=== PATIENT | male | born 1935 | race Caucasian/White ===

== ENCOUNTER 2023-11-09 12:07 | Inpatient (IN) | payer MEDICARE, OTHER ==
[2023-11-09] MEDS: Sodium Chloride 0.9% 10 ML Syringe FLUSH PRN (12:30)
[2023-11-09 12:50] LABS: BASOPHILS PERCENT AUTO 0.1 % (0.0-1.0); HEMOGLOBIN 14.6 gm/dl (14.0-18.0); IMMATURE GRAN ABSOLUTE AUTO 0.06 K/mm3 (0.00-0.05); IMMATURE GRAN PERCENT AUTO 0.4 % (0.0-0.4); LYMPHOCYTES ABSOLUTE AUTO 0.8 K/mm3 (1.0-4.8); LYMPHOCYTES PERCENT AUTO 4.7 % (24.0-44.0); MEAN CORPUSCULAR HEMOGLOBIN 30.9 pg (28.0-32.0); MEAN CORPUSCULAR HGB CONC 32.4 g/dl (32.0-36.0); MEAN CORPUSCULAR VOLUME 95.1 fl (83.0-99.0); MEAN PLATELET VOLUME 10.5 fl (9.4-12.4); MONOCYTES ABSOLUTE AUTO 0.7 K/mm3 (0.0-0.8); MONOCYTES PERCENT AUTO 4.1 % (0.0-8.0); NEUTROPHILS ABSOLUTE AUTO 14.8 K/mm3 (1.8-7.7); NEUTROPHILS PERCENT AUTO 90.7 % (41.0-71.0); PLATELET COUNT,PLT 166 K/mm3 (150-400); RED BLOOD CELL COUNT 4.73 M/mm3 (4.52-5.90); WHITE BLOOD CELL COUNT,WBC 16.36 K/mm3 (3.9-11.3)
[2023-11-09] MEDS: Sodium Chloride 0.9% 500 ML IV STA ×2 (12:50→14:14)
[2023-11-09 13:08] LABS: A/G RATIO 1.1 (1-2); ALBUMIN 3.2 g/dl (3.4-5.0); ANION GAP 18.4 (5-15); BILIRUBIN TOTAL 0.6 mg/dL (0.2-1.0); CALCIUM 8.7 mg/dL (8.5-10.1); CREATININE 1.6 mg/dL (0.7-1.3); EST CRCL DRUG DOSING (CG) 30.41 mL/min; POTASSIUM,K 4.4 mEq/L (3.5-5.1); PROTEIN TOTAL,TP 6.2 g/dl (6.4-8.2)
[2023-11-09 13:25] LABS: CORONAVIRUS COVID-19 NAA NEGATIVE (NEGATIVE); INFLUENZA A NAA NEGATIVE (NEGATIVE); RESPIRATORY SYNCYTIAL VIR NAA NEGATIVE (NEGATIVE)
[2023-11-09 13:28] LABS: SLIDE REVIEW ABNORMAL SMEAR
[2023-11-09 13:33] LABS: LACTIC ACID 1.7 mmol/L (0.4-2.0)
[2023-11-09] MEDS: cefTRIAXone 2 GM in Sodium Chloride 0.9% 100 ML IV ONE (14:15)
[2023-11-09] MEDS: Magnesium Sulfate/Water 4 GM in Premix Bag 1 BAG IV ONE (15:30)
[2023-11-09] MEDS ORDERED: Azithromycin 500 MG in Sodium Chloride 0.9% 250 ML IV SCH (15:45)
[2023-11-09 16:08] LABS: APPEARANCE,URINE CLEAR (Clear); BILIRUBIN,URINE NEGATIVE (Negative); COLOR,URINE YELLOW (Yellow); GLUCOSE,URINE 2+ (Negative); KETONES,URINE NEGATIVE (Negative); LEUKOCYTE ESTERASE,URINE NEGATIVE (Negative); NITRITE,URINE NEGATIVE (Negative); OCCULT BLOOD,URINE NEGATIVE (Negative); PH,URINE 5.5 (5.0-8.0); PROTEIN,URINE NEGATIVE (Negative); UROBILINOGEN,URINE 0.2 (0.2-1.0)
[2023-11-09] MEDS: Cefepime 2 GM in Sodium Chloride 0.9% 50 ML IV SCH ×2 (16:48→18:43)
[2023-11-09] MEDS: Azithromycin 500 MG in Sodium Chloride 0.9% 250 ML IV SCH (17:19)
[2023-11-09] MEDS: Sodium Chloride 0.9% 1,000 ML IV STA (18:43)
[2023-11-09] MEDS ORDERED: 50% Dextrose in Water 50 ML Syringe IVPUSH PRN (19:41)
[2023-11-09] MEDS: Doxycycline 100 MG in Sodium Chloride 0.9% 100 ML IV SCH (20:58)
[2023-11-09] MEDS: Carvedilol 6.25 MG Tab PO SCH (20:59)
[2023-11-09] MEDS: Sodium Chloride 0.9% 1,000 ML IV SCH (21:45)
[2023-11-10] MEDS: Acetaminophen 325 MG Tab PO PRN (04:37)
[2023-11-10] MEDS: Pantoprazole 40 MG Tab.CR PO SCH (04:40)
[2023-11-10 04:51] LABS: BASOPHILS PERCENT AUTO 0.1 % (0.0-1.0); EOSINOPHILS PERCENT AUTO 0.4 % (0.0-6.0); HEMATOCRIT 38.5 % (42.0-52.0); IMMATURE GRAN ABSOLUTE AUTO 0.06 K/mm3 (0.00-0.05); IMMATURE GRAN PERCENT AUTO 0.5 % (0.0-0.4); LYMPHOCYTES ABSOLUTE AUTO 1.2 K/mm3 (1.0-4.8); MEAN CORPUSCULAR HEMOGLOBIN 30.7 pg (28.0-32.0); MEAN CORPUSCULAR HGB CONC 32.5 g/dl (32.0-36.0); MEAN CORPUSCULAR VOLUME 94.6 fl (83.0-99.0); MEAN PLATELET VOLUME 10.9 fl (9.4-12.4); MONOCYTES ABSOLUTE AUTO 0.7 K/mm3 (0.0-0.8); MONOCYTES PERCENT AUTO 5.9 % (0.0-8.0); NEUTROPHILS PERCENT AUTO 82.1 % (41.0-71.0); PLATELET COUNT,PLT 152 K/mm3 (150-400); RED BLOOD CELL COUNT 4.07 M/mm3 (4.52-5.90); WHITE BLOOD CELL COUNT,WBC 10.97 K/mm3 (3.9-11.3)
[2023-11-10 04:53] LABS: HEMOGLOBIN 12.5 gm/dl (14.0-18.0)
[2023-11-10 05:18] LABS: A/G RATIO 0.9 (1-2); ALBUMIN 2.5 g/dl (3.4-5.0); ANION GAP 12.9 (5-15); BILIRUBIN TOTAL 0.5 mg/dL (0.2-1.0); BUN/CREATININE RATIO 16.2 (14-18); C-REACTIVE PROTEIN 10.55 mg/dL (<0.30); CREATININE 1.3 mg/dL (0.7-1.3); EST CRCL DRUG DOSING (CG) 37.43 mL/min; MAGNESIUM 2.1 mg/dL (1.8-2.4); POTASSIUM,K 3.9 mEq/L (3.5-5.1); PROTEIN TOTAL,TP 5.2 g/dl (6.4-8.2)
[2023-11-10] MEDS: Enoxaparin 40 MG/0.4 ML Syringe SUBCUT SCH (08:05)
[2023-11-10] MEDS: Aspirin 81 MG Tab.EC PO SCH (08:05)
[2023-11-10] MEDS: Insulin Lispro 100 Unit/ML 3 ML KwikPen SUBCUT SCH (08:06)
[2023-11-10] MEDS: Sacubitril/Valsartan 1 EACH Tablet PO SCH (08:06)
[2023-11-10] MEDS ORDERED: Spironolactone 25 MG Tab PO SCH (09:00)
[2023-11-10] MEDS: Tamsulosin 0.4 MG Cap.ER PO SCH (21:32)
[2023-11-11 05:52] LABS: EOSINOPHILS ABSOLUTE AUTO 0.1 K/mm3 (0.0-0.4); EOSINOPHILS PERCENT AUTO 1.4 % (0.0-6.0); HEMATOCRIT 39.6 % (42.0-52.0); HEMOGLOBIN 12.8 gm/dl (14.0-18.0); IMMATURE GRAN ABSOLUTE AUTO 0.03 K/mm3 (0.00-0.05); IMMATURE GRAN PERCENT AUTO 0.4 % (0.0-0.4); LYMPHOCYTES ABSOLUTE AUTO 0.9 K/mm3 (1.0-4.8); MEAN CORPUSCULAR HEMOGLOBIN 30.5 pg (28.0-32.0); MEAN CORPUSCULAR HGB CONC 32.3 g/dl (32.0-36.0); MEAN CORPUSCULAR VOLUME 94.3 fl (83.0-99.0); MONOCYTES ABSOLUTE AUTO 0.5 K/mm3 (0.0-0.8); MONOCYTES PERCENT AUTO 6.8 % (0.0-8.0); NEUTROPHILS ABSOLUTE AUTO 6.2 K/mm3 (1.8-7.7); NEUTROPHILS PERCENT AUTO 80.4 % (41.0-71.0); PLATELET COUNT,PLT 144 K/mm3 (150-400); WHITE BLOOD CELL COUNT,WBC 7.75 K/mm3 (3.9-11.3)
[2023-11-11 06:20] LABS: A/G RATIO 0.8 (1-2); ALBUMIN 2.4 g/dl (3.4-5.0); BILIRUBIN TOTAL 0.5 mg/dL (0.2-1.0); BUN/CREATININE RATIO 14.6 (14-18); C-REACTIVE PROTEIN 11.78 mg/dL (<0.30); CALCIUM 8.4 mg/dL (8.5-10.1); CREATININE 1.3 mg/dL (0.7-1.3); EST CRCL DRUG DOSING (CG) 37.43 mL/min; PROTEIN TOTAL,TP 5.3 g/dl (6.4-8.2)
[2023-11-11] MEDS: Polyethylene Glycol 3350 Powder 17 GM Packet PO SCH (08:48)
== END 2023-11-11 10:46 | disposition home or self-care (01) | DRG 178 ==
LOC: JD.ED 12:07 → JD.MS 15:21
PROVIDERS: ADMIT Family Medicine; ATTEND Family Medicine
DX: J18.9 Pneumonia, unspecified organism (principal); J69.0 Pneumonitis due to inhalation of food and vomit; N17.9 Acute kidney failure, unspecified; R09.02 Hypoxemia; I95.9 Hypotension, unspecified; I50.9 Heart failure, unspecified; E83.42 Hypomagnesemia; E11.9 Type 2 diabetes mellitus without complications; N40.0 Benign prostatic hyperplasia without lower urinary tract symptoms; I25.10 Atherosclerotic heart disease of native coronary artery without angina pectoris; Z88.8 Allergy status to other drugs, medicaments and biological substances; Z79.82 Long term (current) use of aspirin; Z79.84 Long term (current) use of oral hypoglycemic drugs; Z79.2 Long term (current) use of antibiotics; Z79.899 Other long term (current) drug therapy; Z98.890 Other specified postprocedural states; Z95.1 Presence of aortocoronary bypass graft; Z95.5 Presence of coronary angioplasty implant and graft; Z86.73 Personal history of transient ischemic attack (TIA), and cerebral infarction without residual deficits
CPT/HCPCS: 0241U; 36415; 71046; 80053; 81003; 82947; 83605; 83735; 83880; 84100; 84484; 85025; 85379; 86140; 87040; 87070; 87205; 87641; 87899; 93005; 94760; 94761; 97161; A9270-GY; J0456; J0692; J0696; J1650; J1815; J3475; J3490; J7030; J7050

== ENCOUNTER 2024-02-15 11:21 | Emergency (ER) | payer MEDICARE, OTHER | END 2024-02-15 12:50 | disposition home or self-care (01) | LOC: JD.ED 11:21 | DX: S70.02XA Contusion of left hip, initial encounter (principal); I12.9 Hypertensive chronic kidney disease with stage 1 through stage 4 chronic kidney disease, or unspecified chronic kidney disease; N18.9 Chronic kidney disease, unspecified; K21.9 Gastro-esophageal reflux disease without esophagitis; M19.90 Unspecified osteoarthritis, unspecified site; E11.22 Type 2 diabetes mellitus with diabetic chronic kidney disease; Z96.649 Presence of unspecified artificial hip joint; Z86.73 Personal history of transient ischemic attack (TIA), and cerebral infarction without residual deficits; Z88.8 Allergy status to other drugs, medicaments and biological substances; Z79.82 Long term (current) use of aspirin; Z79.84 Long term (current) use of oral hypoglycemic drugs; Z79.899 Other long term (current) drug therapy; W19.XXXA Unspecified fall, initial encounter; Y92.019 Unspecified place in single-family (private) house as the place of occurrence of the external cause | CPT/HCPCS: 73502-26-LT; 73502-LT; 99284 ==

== ENCOUNTER → 2024-03-14 | Day surgery (SDC) | payer MEDICARE, OTHER ==
[2024-03-14] MEDS: Phenylephrine 2.5% Ophth Soln 2 ML Bot EYERT SCH (11:35)
[2024-03-14] MEDS: Brimonidine 0.2% Ophth Soln 5 ML Bottle EYERT SCH (11:36)
[2024-03-14] MEDS: Tetracaine HCl/PF 0.5% 4 ML Bottle EYEBOTH SCH (11:36)
[2024-03-14] MEDS: Lidocaine 1% PF 2 ML SDV INJECT SCH (11:36)
[2024-03-14] MEDS: Pilocarpine 4% Ophth Soln 15 ML Bot EYERT SCH (11:37)
[2024-03-14] MEDS: Polymyxin B/Trimethoprim 10 ML Bottle EYERT SCH (11:37)
[2024-03-14] MEDS: Cefuroxime 10 MG/ML SYRINGE EYERT SCH (11:37)
[2024-03-14] MEDS: Tropicamide 1% Ophth Soln 3 ML Bottle EYERT SCH (11:55)
== END ==
LOC: JD.SDS 11:13
PROVIDERS: ATTEND Ophthalmology
DX: E11.36 Type 2 diabetes mellitus with diabetic cataract (principal); H25.813 Combined forms of age-related cataract, bilateral; H21.81 Floppy iris syndrome; H21.41 Pupillary membranes, right eye; I10 Essential (primary) hypertension; K21.9 Gastro-esophageal reflux disease without esophagitis; Z79.84 Long term (current) use of oral hypoglycemic drugs; Z79.899 Other long term (current) drug therapy
CPT/HCPCS: 66982; A9270; J0697; J3490

== ENCOUNTER 2024-04-11 10:44 | Day surgery (SDC) | payer MEDICARE, OTHER ==
[2024-04-11] MEDS: Cefuroxime 10 MG/ML SYRINGE EYELF SCH (08:34)
[2024-04-11] MEDS: Brimonidine 0.2% Ophth Soln 5 ML Bottle EYELF SCH (08:34)
[2024-04-11] MEDS: Tetracaine HCl/PF 0.5% 4 ML Bottle EYEBOTH SCH (08:34)
[2024-04-11] MEDS: Lidocaine 1% PF 2 ML SDV INJECT SCH (08:34)
[2024-04-11] MEDS: Phenylephrine 2.5% Ophth Soln 2 ML Bot EYELF SCH (08:34)
[2024-04-11] MEDS: Polymyxin B/Trimethoprim 10 ML Bottle EYELF SCH (08:35)
[2024-04-11] MEDS: Pilocarpine 4% Ophth Soln 15 ML Bot EYELF SCH (08:35)
[2024-04-11] MEDS: Tropicamide 1% Ophth Soln 3 ML Bottle EYELF SCH (12:00)
== END 2024-04-11 13:33 | disposition home or self-care (01) ==
LOC: JD.SDS 10:44
PROVIDERS: ATTEND Ophthalmology
DX: E11.36 Type 2 diabetes mellitus with diabetic cataract (principal); H25.812 Combined forms of age-related cataract, left eye; H21.81 Floppy iris syndrome; H21.42 Pupillary membranes, left eye; I10 Essential (primary) hypertension; Z96.1 Presence of intraocular lens; Z79.84 Long term (current) use of oral hypoglycemic drugs; Z79.899 Other long term (current) drug therapy
CPT/HCPCS: A9270-GY; J0697; J3490